=== PATIENT | male | born 1960 | race Caucasian/White ===

== ENCOUNTER 2019-10-27 10:49 | Outpatient (CLI) | payer OTHER, SELFPAY ==
--- NOTE | 2019-10-27 11:08 | MR_ITS ---
WS: [id number] MRI CERVICAL SPINE NONCONTRAST TECHNIQUE: Sagittal T1, T2 and STIR imaging. Axial T2, gradient, and fiesta imaging. CLINICAL INFORMATION: NECK PAIN COMPARISON: None. FINDINGS: Exaggeration of the normal cervical lordosis. Small central syrinx in the cervical cord most prominen t at C5-C7. This measures approximately 2 mm in maximum AP dimension. Additional tiny syrinx extends into the upper thoracic cord only seen on the sagittal imaging. This can be further evaluated with t horacic spine MRI. Small focus of dorsal cord signal at T2. C2-C3: Normal. C3-C4: Mild disc bulging and osteophytic ridging. Mild right foraminal narrowing. Mild facet arthropa thy. C4-C5: No significant disc bulging. Moderate facet arthropathy. Mild left and no significant right fo raminal narrowing. C5-C6: Small shallow central disc protrusion with slight contact of the cervical cord. Mild central c anal stenosis. Mild to moderate bilateral foraminal narrowing. Mild facet arthropathy. C6-C7: Disc osteophyte complex with endplate ridging. Mild central canal stenosis. Moderate bilateral bony foraminal narrowing. C7-T1: Osteophytic ridging with mild disc bulging. Mild left greater than right foraminal narrowing. Spinal canal is patent. Small amount of facet edema at right C3-4 consistent with synovitis/degenerative change..
--- NOTE | 2019-10-27 11:35 | MR_ITS ---
WS: [id number] MRI CERVICAL SPINE NONCONTRAST TECHNIQUE: Sagittal T1, T2 and STIR imaging. Axial T2, gradient, and fiesta imaging. CLINICAL INFORMATION: NECK PAIN COMPARISON: None. FINDINGS: Exaggeration of the normal cervical lordosis. Small central syrinx in the cervical cord most prominen t at C5-C7. This measures approximately 2 mm in maximum AP dimension. Additional tiny syrinx extends into the upper thoracic cord only seen on the sagittal imaging. This can be further evaluated with t horacic spine MRI. Small focus of dorsal cord signal at T2. C2-C3: Normal. C3-C4: Mild disc bulging and osteophytic ridging. Mild right foraminal narrowing. Mild facet arthropa thy. C4-C5: No significant disc bulging. Moderate facet arthropathy. Mild left and no significant right fo raminal narrowing. C5-C6: Small shallow central disc protrusion with slight contact of the cervical cord. Mild central c anal stenosis. Mild to moderate bilateral foraminal narrowing. Mild facet arthropathy. C6-C7: Disc osteophyte complex with endplate ridging. Mild central canal stenosis. Moderate bilateral bony foraminal narrowing. C7-T1: Osteophytic ridging with mild disc bulging. Mild left greater than right foraminal narrowing. Spinal canal is patent. Small amount of facet edema at right C3-4 consistent with synovitis/degenerative change.. MR/MR cervical spin wo con* [id number] IMPRESSION: 1. Exaggeration of the normal cervical lordosis. 2. T2 hyperintense syrinx in the cervical score most prominent C6-C7 measuring 2 mm in maximum dimension. Additional tiny syrinx extends into the upper thora cic cord only seen on the sagittal imaging. This can be further evaluated with thoracic spine MRI without and with gadolinium. 3. Tiny focus of T2 signal abnormality in the dorsal cord at the T2 level like ly chronic myelomalacia. 4. Mild central canal stenosis C5-C6 and C6-7 due to shallow central disc oste ophyte complex. 5. Moderate bony foraminal narrowing worse at bilateral C5-C6 and C6-C7.
--- NOTE | 2019-10-27 11:37 | XR_ITS ---
WS: [id number] EYE TECHNIQUE: 2 views of the skull CLINICAL INFORMATION: PRE MRIT COMPARISON: None. FINDINGS: No radiopaque foreign bodies. XR/XR eye foreign body [id number] IMPRESSION: No radiopaque foreign bodies.
--- NOTE | 2019-10-27 11:37 | XR_ITS ---
WS: [id number] EYE TECHNIQUE: 2 views of the skull CLINICAL INFORMATION: PRE MRIT COMPARISON: None. FINDINGS: No radiopaque foreign bodies.
== END 2019-10-27 10:50 | disposition home or self-care (01) ==
PROVIDERS: Family Provider Family Medicine; PCP Nurse Practitioner Family; Visit Provider Nurse Practitioner Family
DX: M48.02 Spinal stenosis, cervical region (principal); M25.78 Osteophyte, vertebrae; M54.2 Cervicalgia; Z01.818 Encounter for other preprocedural examination
CPT/HCPCS: 70030; 72141